=== PATIENT | female | born 1940 | race Caucasian/White ===

== ENCOUNTER 2021-04-20 05:10 | Observation (INO) ==
--- NOTE | 2021-02-17 15:35 | PAT Medication Instructions ---
Medication Instructions Date of Service February 17, 2021 Home Medications alendronate 70 mg tablet (Fosamax) 70 mg PO WK apixaban 5 mg tablet (Eliquis) 5 mg PO BID atorvastatin 20 mg tablet (Lipitor) 20 mg PO PM brimonidine 0.15 % eye drops (Alphagan P) 1 drp OPHTHALMIC (EYE) BID cholecalciferol (vitamin D3) 50 mcg (2,000 unit) capsule (Vitamin D3) 50 mcg PO QAM diltiazem HCl 180 mg capsule,24 hr,extended release 180 mg PO QAM dorzolamide 22.3 mg-timolol 6.8 mg/mL eye drops (Cosopt) 1 drp OPHTHALMIC (EYE) AMPM furosemide 20 mg tablet (Lasix) 20 mg PO DAILY PRN lisinopril 10 mg tablet 10 mg PO QAM meloxicam 7.5 mg tablet (Mobic) 7.5 mg PO QAM metoprolol succinate 50 mg tablet,extended release 24 hr (Toprol XL) 100 mg PO BID montelukast 10 mg tablet (Singulair) 10 mg PO HS sertraline 25 mg tablet (Zoloft) 25 mg PO QAM spironolactone 25 mg tablet 12.5 mg PO DAILY PRN loratadine 10 mg tablet 10 mg PO DAILY PRN PreserVision AREDS-2 1 tab PO BID Continue as directed alendronate 70 mg tablet (Fosamax) 70 mg PO WK ASK your prescriber and surgeon apixaban 5 mg tablet (Eliquis) 5 mg PO BID (in order for spinal anesthesia, Apixaban/Eliquis needs to be stopped 72 hours/3 days before surgery. Please check if okay with doctor that prescribes this to you) STOP taking 2 weeks before surgery (or as soon as possible if surgery is within 2 weeks) PreserVision AREDS-2 1 tab PO BID DO NOT take the morning of surgery cholecalciferol (vitamin D3) 50 mcg (2,000 unit) capsule (Vitamin D3) 50 mcg PO QAM furosemide 20 mg tablet (Lasix) 20 mg PO DAILY PRN lisinopril 10 mg tablet 10 mg PO QAM spironolactone 25 mg tablet 12.5 mg PO DAILY PRN loratadine 10 mg tablet 10 mg PO DAILY PRN Take morning of surgery With a small sip of water, OTHERWISE NOTHING TO EAT OR DRINK AFTER MIDNIGHT: brimonidine 0.15 % eye drops (Alphagan P) 1 drp OPHTHALMIC (EYE) BID diltiazem HCl 180 mg capsule,24 hr,extended release 180 mg PO QAM dorzolamide 22.3 mg-timolol 6.8 mg/mL eye drops (Cosopt) 1 drp OPHTHALMIC (EYE) AMPM metoprolol succinate 50 mg tablet,extended release 24 hr (Toprol XL) 100 mg PO BID sertraline 25 mg tablet (Zoloft) 25 mg PO QAM Take evening before surgery atorvastatin 20 mg tablet (Lipitor) 20 mg PO PM brimonidine 0.15 % eye drops (Alphagan P) 1 drp OPHTHALMIC (EYE) BID dorzolamide 22.3 mg-timolol 6.8 mg/mL eye drops (Cosopt) 1 drp OPHTHALMIC (EYE) AMPM furosemide 20 mg tablet (Lasix) 20 mg PO DAILY PRN (if needed) metoprolol succinate 50 mg tablet,extended release 24 hr (Toprol XL) 100 mg PO BID montelukast 10 mg tablet (Singulair) 10 mg PO HS spironolactone 25 mg tablet 12.5 mg PO DAILY PRN (if needed) loratadine 10 mg tablet 10 mg PO DAILY PRN (if needed) Other Notes If you have any questions please call us at [phone] or [phone] or [phone] or [phone]
--- NOTE | 2021-02-22 11:08 | Anesthesiology Consultation ---
Date of Service February 22, 2021 Assessment & Plan (1) Encounter for pre-operative examination: - COVID screening: Per assessment on 02/22: Travel screen negative, no known COVID-19 positive contacts or current COVID-19 related symptoms. Patient vac cinated. Surgeon arranging preop COVID testing. Awaiting results. - Cardiology office visit (02/15/21): "Paroxysmal atrial fibrillation status post pulmonary vein isolation ablation for past atrial flutter and atrial fibrillation, February 2004 with a repeat study in 2004. Recurrent arrhythmia with subsequent synchronized electrical cardioversion May 06, 2020.. Patient found to have recurrent rate controlled afib today. She is relatively asymptomatic and was not initially aware of the recurrent arrhythmia. Her rates are appropriately controlled on current dose of diltiazem. Otherwise she reports stable functional capacity, other than right knee pain. Considered low to moderate risk for perioperative cardiac complications. Acceptable to hold Eliquis for 2 days (4 doses) pre surgery. To be resumed in the post op setting when bleeding risk is minimal. One month after resumption and interruption of Eliquis, could consider repeat CV with possible sotalol initiation vs ongoing rate control strategy. Would not delay surgery due to recurrent rate controlled afib." - Eliquis instructions: patient made aware that in order for spinal anesthesia, Eliquis needs to be held 72 hours/3 days prior to surgery. Patient states that her notch machine operator had told her to stop Eliquis 48 hours prior to surgery previous to PAT visit and will follow-up with them again to see if they give approval for holding 72 hours prior to surgery. Patient aware that if cardiology does not feel able to hold for 72 hours, that general anesthesia is the alternative anesthetic option. Chart Review Chart Review: Acceptable Risk for Surgery and Patient seen in Pre Admission Testing Teaching & Discussion Pre-Anesthesia Teaching/Discussion Notes: Instructed NPO after midnight before surgery,except medications with 15 cc of water. Medication instructions provided according to the PAT guidelines. History Surgery Operation Date: 03/09/21 07:00 Proposed Procedures p Right Total Knee Replacement - Adeel Peter MD Height/Weight Height: 5 ft 3 in Weight: 87.2 kg Allergies Allergy/AdvReac Type Severity Reaction Status Date / Time Penicillins Allergy Mild Rash (? Verified 02/19/21 15:52 negative allergy testing) Sulfa (Sulfonamide Allergy Mild Rash Verified 02/17/21 10:19 Antibiotics) codeine AdvReac Intermediate Nausea Verified 02/17/21 10:20 Medications Home Medications Medication Instructions Recorded Confirmed Last Taken alendronate 70 mg tablet (Fosamax) 70 mg PO WK 05/05/20 02/17/21 Unknown apixaban 5 mg tablet (Eliquis) 5 mg PO BID 05/05/20 02/17/21 Unknown atorvastatin 20 mg tablet (Lipitor) 20 mg PO PM 05/05/20 02/17/21 Unknown brimonidine 0.15 % eye drops 1 drp OPHTHALMIC (EYE) BID 05/05/20 02/17/21 Unknown (Alphagan P) cholecalciferol (vitamin D3) 50 50 mcg PO QAM 05/05/20 02/17/21 Unknown mcg (2,000 unit) capsule (Vitamin D3) diltiazem HCl 180 mg capsule,24 180 mg PO QAM 05/05/20 02/17/21 Unknown hr,extended release dorzolamide 22.3 mg-timolol 6.8 1 drp OPHTHALMIC (EYE) AMPM 05/05/20 02/17/21 Unknown mg/mL eye drops (Cosopt) furosemide 20 mg tablet (Lasix) 20 mg PO DAILY PRN 05/05/20 02/17/21 Unknown lisinopril 10 mg tablet 10 mg PO QAM 05/05/20 02/17/21 Unknown meloxicam 7.5 mg tablet (Mobic) 7.5 mg PO QAM 05/05/20 02/17/21 Unknown metoprolol succinate 50 mg 100 mg PO BID 05/05/20 02/17/21 Unknown tablet,extended release 24 hr (Toprol XL) montelukast 10 mg tablet 10 mg PO HS 05/05/20 02/17/21 Unknown (Singulair) sertraline 25 mg tablet (Zoloft) 25 mg PO QAM 05/05/20 02/17/21 Unknown spironolactone 25 mg tablet 12.5 mg PO DAILY PRN 05/05/20 02/17/21 Unknown loratadine 10 mg tablet 10 mg PO DAILY PRN 02/17/21 02/17/21 Unknown vit C 250 mg-vit E 90 mg-zinc 40 1 tab PO BID 02/17/21 02/17/21 Unknown mg-copper 1 [id number] capsule (PreserVision AREDS-2) Past Medical History Medical History Asthma Well controlled. No inhaler x 1+ years Atrial fibrillation Dx several yrs ago, cardioversion 05/[address] Negrete Cervical arthritis DJD (degenerative joint disease) Elevated cholesterol Glaucoma Hypertension Macular degeneration Obesity Osteoporosis Parathyroid disease Hyperparathyroidism Exercise / Class Metabolic Activity III < 4 Walking/Shop/Light housework Past Surgical History Surgical History H/O cervical discectomy ROM WNL per pt History of cardiac radiofrequency ablation 2004, 2005 History of cardioversion Cardioversion (05/06/20): MAC at [facility] History of cataract surgery R/L History of tonsillectomy Hx of colonoscopy Status post Mohs surgery x2 face Past Anesthesia History No Hx of Anesthesia Complications (except remote PONV) and No Family Hx of Anesthesia Complications History of PONV History of PONV (remote PONV) and Hx of Motion Sickness Social History Smoking Status: Never smoker Do You Dip or Chew Tobacco: No Hx Alcohol Use: Yes Alcohol type: wine alcohol intake frequency: 0-2 drinks per day Hx Substance Use: No substance use type: does not use Review of Systems Patient denies chest pain, shortness of breath, fever, chills, cough, wheezing, palpitations. Physical Exam Vital Signs VITALS BP 143/81 P 88 TEMP 98.5 SP02 96%RA RESP 16 PHYSICAL Full cervical extension range of motion. Full TMJ range of motion. TMD 3.5 finger breaths Mallampati Score 3 (large torus on roof of mouth, smaller noted under tongue) Dentition: intact, + crowns Lungs: clear throughout to auscultation Cardiac: regular rate, irregular rhythm, no murmurs noted Spine: normal Carotid arteries: negative bruit Extremities: no edema Short neck Lab Results Anesthesia Preop Results Results Anesthesia Widget: WBC 8.06 K/uL (4.8-10.8) 02/22/21 Hgb 13.5 g/dL (12.0-16.0) 02/22/21 Hct 40.9 % (37-47) 02/22/21 Plt 247 K/uL (130-400) 02/22/21 Na 135 mmol/L (136-145) L 02/22/21 K 4.2 mmol/L (3.5-5.1) 02/22/21 Cl 102 mmol/L (98-107) 02/22/21 CO2 26 mmol/L (21-32) 02/22/21 BUN 9 mg/dl (7-18) 02/22/21 Creat 0.69 mg/dl (0.6-1.2) 02/22/21 Glucose Level 95 mg/dl (70-99) 02/22/21 PT 11.4 Seconds (9.0-12.0) 02/22/21 PTT 28.2 Seconds (21.0-31.0) 02/22/21 INR 1.1 (0.9-1.1) 02/22/21 Blood Type AB Positive 02/22/21 Antibody Screen NEGATIVE 02/22/21 Testing Electrocardiogram Date: 02/15/21 Findings: + AFIB @ (89) Chest X-Ray Date: 02/22/21 FINDINGS: Cardiomediastinal and hilar silhouettes are within normal limits. Calcified plaque of the thoracic aorta. Mild hyperinflation. No pneumothorax, large pleural effusion or lobar airspace consolidation. Blunting of the costophrenic angles with mild bibasilar densities suggestive of atelectasis/scarring. Degenerative changes of the shoulders and spine. Cervical spinal fusion hardware. IMPRESSION: No acute process. Echocardiogram Date: 12/15/15 EF 55-59%. Mild LAE. Grade I DD. Mild MR/TR. No RWMA.
--- NOTE | 2021-04-16 14:13 | History and Physical Report ---
DATE OF ADMISSION: 04/20/2021 CHIEF COMPLAINT: Right knee pain and discomfort. HISTORY OF PRESENT ILLNESS: The patient is an 80-year-old female who presents now for surgical treat ment of her right knee. She has had a long, several-year history of gradually increasing right knee pain and discomfort. We have been treating her over the years with injections. The shots have becom e less successful over time. It has really limited her walking ability. She enjoys walking and hiki ng and is unable to do that. She describes global pain. It increases with weightbearing. She limps more as the day goes on. The shots only helped her for a short period of time. She would like to h ave her knee fixed. She has been scheduled for several attempts at this, but canceled due to the martinez demic. She would now like to proceed. PAST MEDICAL HISTORY: Significant for, 1. Asthma. 2. Atrial fibrillation, status post cardioversion, but still back in AFib, rate controlled. 3. Elevated cholesterol. 4. Hypertension. 5. Parathyroid disease. 6. Cervical degenerative arthritis. PAST SURGICAL HISTORY: Includes, 1. Neck surgery for diskectomy. 2. Colonoscopy. 3. Pulmonary vein ablation. ALLERGIES: PENICILLIN, WHICH CAUSES A RASH. NO BREATHING PROBLEMS. ALSO DESCRIBES ALLERGIES TO SUL FA. CURRENT MEDICATIONS: Include, 1. Fosamax. 2. Eliquis for AFib. 3. Aspirin. 4. Lipitor. 5. Vitamin D3. 6. Diltiazem. 7. Cosopt. 8. Lasix. 9. Lisinopril. 10. Mobic. 11. Metoprolol-XL. 12. Zoloft. 13. Spironolactone. SOCIAL HISTORY: An 80-year-old female. She is a . Lives alone. Does not smoke. She lives at [facility]. FAMILY HISTORY: Noncontributory. REVIEW OF SYSTEMS: Significant for atrial fibrillation. She is on Eliquis. She did have an ablatio n, but she has gone back in AFib, but rate controlled. No chest pain or shortness of breath. No his tory of DVT or PE. PHYSICAL EXAMINATION: GENERAL: Shows a pleasant, elderly female. Looks to be in pretty good health. HEENT: Benign. NECK: Supple. No lymphadenopathy. LUNGS: Clear to auscultation. HEART: Has an irregularly irregular rhythm. ABDOMEN: Soft, nontender, nondistended. EXTREMITIES: Grossly neurovascularly intact except as follows: Examination of the right knee reveal s the patient walks with just a slight bit of a limp. She has got valgus alignment to her knee, whic h is increased with weightbearing. She has got a small to moderate-sized knee effusion. Range of mo tion about 10 degrees short of full extension to about 115 degrees of flexion. No pain with hip autumn on. Negative straight leg raise. X-RAYS: X-rays of the right knee from previously are reviewed. It shows advanced right knee latera l DJD. She has complete loss of her lateral joint space. Diffuse osteopenia. ASSESSMENT: An 80-year-old female with multiple medical comorbidities including atrial fibrillation, elevated cholesterol, hypertension, parathyroid disease, asthma and underlying arthritis [facility] right knee degenerative joint disease. She has failed conservative treatment. She would like to have her right knee replaced. She has actually been scheduled on several occasions, but canceled due to the pandemic. She is really anxious to get this fixed. PLAN: We will take her to the operating room and do right total knee replacement. The risks and ankit efits of this procedure were explained to the patient and include, but not limited to DVT, PE, , infection, neurological injury, vascular injury, bleeding problem, pain, limited range of motion, st iffness, failure to relieve her symptoms, incomplete relief of symptoms, need for further surgery in the future, fracture, leg length inequality, nerve palsy, etc. The patient understands and desires t o proceed. Informed consent was obtained. She does have AFib and she will need to stop her Eliquis 3 days preop. We will start her back on a p rophylactic dose 24 hours postop and then a therapeutic dose on discharge. She has seen Dr. Caden palmer is cleared for surgery. She will hold the lisinopril on the morning of surgery and take the metopr olol. As far as discharge plans, she is going to plan on going to [facility] for recovery. Job ID: [id number]
[~2021-04-20 05:10] MED LIST: ACETAMINOPHEN 500 MG TAB PO SCH; BUPIVACAINE LIPOSOME/PF 266 MG, BUPIVACAINE/EPINEPHRINE 50 ML, SODIUM CHLORIDE 0.9% 30 ... INFIL SCH; FAMOTIDINE 20 MG TAB PO SCH; GABAPENTIN 300 MG CAP PO SCH; LR 500ML BOLUS, THEN 15ML/HR IV SCH; LR 60ML/HR IV SCH; METOCLOPRAMIDE HCL 10 MG TABLET PO SCH; TRANEXAMIC ACID 1,000 MG **IV Intra-op IV SCH; ceFAZolin 2000MG 2,000 MG/15 ML SYR IV SCH
[2021-04-20] MEDS ORDERED: LR 500ML BOLUS, THEN 15ML/HR IV SCH (06:00)
[2021-04-20] MEDS ORDERED: TRANEXAMIC ACID 1,000 MG **IV Intra-op IV SCH (06:00)
[2021-04-20] MEDS ORDERED: METOCLOPRAMIDE HCL 10 MG TABLET PO SCH (06:00)
[2021-04-20] MEDS ORDERED: ACETAMINOPHEN 500 MG TAB PO SCH (06:00)
[2021-04-20] MEDS ORDERED: FAMOTIDINE 20 MG TAB PO SCH (06:00)
[2021-04-20] MEDS ORDERED: LR 60ML/HR IV SCH (06:00)
[2021-04-20] MEDS ORDERED: GABAPENTIN 300 MG CAP PO SCH (06:00)
[2021-04-20] MEDS ORDERED: ceFAZolin 2000MG 2,000 MG/15 ML SYR IV SCH (06:00)
[2021-04-20] MEDS ORDERED: BUPIVACAINE LIPOSOME/PF 266 MG, BUPIVACAINE/EPINEPHRINE 50 ML, SODIUM CHLORIDE 0.9% 30 ... INFIL SCH (06:00)
[2021-04-20] MEDS ORDERED: BUPIVACAINE 0.5 % 5 MG/1 ML PF 10ML VIAL ONE (06:19)
[2021-04-20] MEDS ORDERED: LIDOCAINE 2% 2 ML VIAL/AMP(20MG/ML) INFIL ONE (06:38)
[2021-04-20] MEDS ORDERED: MIDAZOLAM HCL 1 MG/ML 2ML VIAL ONE (06:38)
[2021-04-20] MEDS ORDERED: PROPOFOL IV EMULSION 10 MG/ML 20 ML VIAL IV ONE (06:38)
[2021-04-20] MEDS ORDERED: fentaNYL citrate 100 MCG/2 ML VIAL ONE (06:38)
[2021-04-20] MEDS ORDERED: fentaNYL citrate 100 MCG/2 ML VIAL IV PRN (06:40)
[2021-04-20] MEDS ORDERED: ePHEDrine sulfate 50 MG/ML AMP IV PRN (06:40)
[2021-04-20] MEDS ORDERED: ONDANSETRON INJ 2 MG/ML 2 ML VIAL IV PRN ×2 (06:40→10:02)
[2021-04-20] MEDS ORDERED: ATROPINE SULFATE 0.1 MG/ML 10ML SYR IV PRN (06:40)
[2021-04-20] MEDS ORDERED: SODIUM CHLORIDE 0.9% PF 50 ML VIAL ONE (06:56)
[2021-04-20] MEDS ORDERED: BUPIVACAINE 0.25% 30 ML VIAL ONE (06:57)
[2021-04-20] MEDS ORDERED: EPINEPHrine INJ 1 MG/ML AMP ONE (06:57)
[2021-04-20] MEDS ORDERED: BUPIVACAINE LIPOSOME 1.3% 266 MG/20 ML VIAL ONE (06:57)
--- NOTE | 2021-04-20 07:02 | History & Physical Bridge Note ---
Date of Service April 20, 2021 History & Physical Bridge Note I have examined the patient, reviewed the History & Physical and in the interval since the performance of the History & Physical I have noted the following changes of clinical significance: no changes noted
[2021-04-20] MEDS ORDERED: PHENYLEPHRINE 100MCG/ML 5ML SYR ONE (08:37)
--- NOTE | 2021-04-20 09:11 | Operative Report ---
Post Operative Report Pre & Post Diagnosis Operation Date: 04/20/21 07:00 Pre-Op Diagnosis: Right Knee Advanced Degenerative Joint Disease Post-Op Diagnosis: Right Knee Advanced Degenerative Joint Disease I identified the patient and participated in the time-out.: Yes Procedure Operation Date: 04/20/21 07:00 Actual Procedures p Right Total Knee Arthroplasty(Right) - Adeel Peter MD Surgeon Adeel Peter MD Tire Fabricator Saqib Mtz PA-C Estimated Blood Loss 50 Findings Consistent with Post-Op Diagnosis Operative findings were advanced right knee tricompartment DJD. She had grade 4 [id number] disease in all 3 compartments most severe in the lateral side. She has fixed valgus deformity and a slight flexion contracture. She had fairly stiff knee preoperatively only had bend about 100 degrees. Fluids 1000 cc Specimens Right knee sent for pathology. Drains None Anesthesia Type Spinal MAC Complications none Disposition Accompanied Patient To Recovery: No Indications Patient is an 80-year-old female long-term patient of mine has had a long several year history of gradually increasing right knee pain discomfort and progressive arthritic changes. She failed conservative measures. She has actually been scheduled for knee replacement surgery several times but canceled due to the Covid epidemic. She now presents for surgical management. Description of Procedure Operative implants consist of: 1. Biomet Vanguard size 65 right posterior stabilized femoral component. 2. Biomet size 71 tibial tray. 3. 10 mm posterior stabilized polyethylene insert. 4. 28 x 8 all polypatella. The patient was taken the operating, identified, placed on the operating table supine position but all contact areas were properly padded. IV antibiotics were tried by the anesthesia team. A spinal anesthetic had been implemented holding area. Feliz catheter was placed in sterile fashion. Right thigh turn was then placed. Right lower extremities then prepped and draped in usual sterile fashion. Right leg was elevated exsanguinated with use of an Esmarch and turns placed at 3 mmHg. An anterior approach to the right knee was then performed through longitudinal incision centered over the patella. Sharp dissection carried through subcutaneous is down the extensor mechanism. Medial parapatellar arthrotomy incision was made. Some subperiosteal dissection was carried out medially. The fat pad was resected beneath patella tendon. Lateral patellof emoral ligament was released. Patella subluxated laterally and the knee was flexed. The osteophytes were taken off distal femur. The ACL and PCL were then released from distal femur the tibia subluxated anteriorly. The external tibial alignment jig was then placed in the interface of the tibia and adjusted 12 mm medially. Proximal tibial cut was made remove about 4 to 5 mm of bone from the medial side. Her bone was fairly osteopenic. We then sized the tibia to a size 71. I tried to maximize coverage due to her osteopenia. Attention drawn the femur. The distal femur during the sharp drop with intramedullary canal was suction. A right 5 degree valgus cutting guide was placed. The distal femoral cutting block was pinned in place. Distal femoral cut was made to take an additional 3 mm of bone off distal femur. I then brought the knee out in extension. I did release the IT band in order to equalize extension gap. The femur was then sized to a size 65. We did downsize this almost an entire size. The AP cutting block was pinned parallel to the epicondylar axis which was 3 degrees external rotation. The anterior cut, anterior chamfer, posterior cut, posterior chamfer cuts were made. The box cutting guide was placed in just slight lateral box cut was made. The knee was flexed for the remnants of the medial and lateral menisci were excised. I did release the popliteus in order to equalize the flexion gap. Great care was taken throughout the procedure protect the peroneal nerve at all times. The osteophyte taken off the posterior aspect the femur. A trial femoral component was placed. Tibial tray was pinned in maximum external rotation and the drill and stem punch were used to create the defect in the proximal tibia for the tibial tray. Knee was then trialed and the 10 mm insert fit most appropriately. Attention drawn the patella. Patella cut was cleaned of all soft tissues. Patella thickness measured 22 mm in thickness was cut down to 14. I excised this to a size 28 patella. The lug holes were drilled for the 28 patella. The lateral osteophyte is moved. Patella button was placed. Knee was taken through range of motion patella tracked nicely with no thumbs test. Attention then drawn toward placing permanent components. All trial components were removed. A bone plug was placed in the distal femur limit blood loss. Double batch Palacos G cement was mixed. A Biomet Vanguard size 65 right posterior stabilized femoral component, size 71 tibial tray, a 10 mm posterior stabilized polyethylene insert, and a 28 x 8 all polypatella then cemented in place. Knee was brought out into full extension until cement hardened. Final cement check was then performed. The pericapsular tissues were injected with total 100 cc of combination of 20 cc of Exparel, 30 cc normal saline, 50 cc of quarter percent Marcaine with epinephrine. Patient did receive 1 g tranexamic acid per the turn was let down for final treatment time of 54 minutes. Hemostasis assured use electrocautery. Extensor mechanism closed with combination 1 PDS suture #1 Vicryl suture in [id number] fashion. Extensor mechanism checked found to be intact with subcutaneous tissue then closed with 2 Dexon suture in a buried interrupted fashion. Skin was closed skin netta. Leg was then cleaned and dried a sterile dressing was Xeroform, 4 x 4's, sterile cast padding, Merlin bandage were applied. Patient then transferred to the recovery room in stable condition. Patient tolerated procedure well and there were no complications. Saqbi Mtz, my physician speech therapy assistant, was present for the entire procedure. His assistance was essential and required for appropriate patient positioning, prepping and draping, surgical exposure, performing the technical details of the operation, placement the implants, closure of the wound, and placement of the sterile bandage. I attest to the content of the Intraoperative Record and any orders documented therein. Any exceptions are noted below.
--- NOTE | 2021-04-20 09:38 | XRay Report ---
XR knee RT 1 or 2V routine HISTORY: 80 years-old Female Surgical Post Op right knee total joint arthroplasty COMPARISON: Right knee radiographs 10/16/2020 TECHNIQUE: 2 views of the right knee FINDINGS: Right knee total joint arthroplasty and patella resurfacing. Anterior midline skin netta are noted along with expected postoperative soft tissue swelling and deep tissue air. No acute fracture, malali gnment or opaque foreign body identified. IMPRESSION: Right knee total joint arthroplasty with expected postoperative changes. ACT 112: Negative or not required by law. The above report was generated using voice recognition software. It may contain grammatical, syntax o r spelling errors. Electronically signed by: Romero Judge M.D. 04/20/2021 9:37 AM
[2021-04-20] MEDS ORDERED: METOCLOPRAMIDE HCL INJ 5 MG/ML 2 ML VIAL IV PRN (10:02)
[2021-04-20] MEDS ORDERED: NON-FORMULARY MEDICATION (Vit C,E-Zn-Coppr-Lutein-Zeaxan [Preservision Areds-2] 250-90-40- PO SCH (10:02)
[2021-04-20] MEDS ORDERED: MAGNESIUM HYDROXIDE SUSP 30 ML UDC PO PRN (10:02)
[2021-04-20] MEDS ORDERED: FUROSEMIDE 20 MG TAB PO PRN (10:02)
[2021-04-20] MEDS ORDERED: SPIRONOLACTONE 12.5 MG TAB PO PRN (10:02)
[2021-04-20] MEDS ORDERED: LORATADINE 10 MG TAB PO PRN (10:02)
[2021-04-20] MEDS ORDERED: HYDROmorphone INJ 0.5 MG/0.5 ML SYR IV PRN (10:02)
[2021-04-20] MEDS ORDERED: bisacodyL 10 MG SUPP PR PRN (10:02)
[2021-04-20] MEDS ORDERED: ALUMINUM/MAGNESIUM SUSP 30 ML UDC PO PRN (10:02)
[2021-04-20] MEDS ORDERED: NALOXONE HCL 0.4 MG/1 ML VIAL/CARP IV PRN (10:02)
[2021-04-20] MEDS ORDERED: DOCUSATE SODIUM/SENNA 50/8.6MG TAB PO SCH (10:02)
--- NOTE | 2021-04-20 10:28 | Anesthesiology Progress Note ---
Date of Service April 20, 2021 Anesthesia Post Procedure Vital Signs Vital Signs: Temp Pulse Pulse Resp BP BP Pulse Ox 04/20/21 09:20 97.3 F L 75 16 101/67 97 04/20/21 09:10 72 16 103/51 L 96 04/20/21 09:00 97.2 F L 65 16 100/62 97 04/20/21 05:35 99.0 F 97 H 20 161/81 H 97 Transfer of Care Handoff Completed per policy Notes Mental Status: alert / awake / arousable and participated in evaluation Patient Amnestic to Procedure: Yes Nausea / Vomiting: adequately controlled Pain: adequately controlled Airway Patency, RR, SpO2: stable & adequate BP & HR: stable & adequate Hydration State: stable & adequate Neuraxial Anesthesia: was administered and sensory block is resolving Anesthetic Complications: no major complications apparent and Pt Satisfied with anesthetic care
[2021-04-20] MEDS: dilTIAZem ER 180 MG CAPCR PO SCH (11:38)
[2021-04-20] MEDS: BRIMONIDINE TARTRATE-P 0.15% 5 ML BTL OP SCH ×2 (11:38→19:20)
[2021-04-20] MEDS: CHOLECALCIFEROL 1,000 UNITS 25 MCG TAB PO SCH (11:38)
[2021-04-20] MEDS: DORZOLAMIDE/TIMOLOL 22.3/6.8MG/ML 10 ML BTL OP SCH ×2 (11:38→19:27)
[2021-04-20] MEDS: METOPROLOL SUCC 50MG EXT REL TAB PO SCH ×2 (11:39→19:18)
[2021-04-20] MEDS: SERTRALINE HCL 50 MG TABLET PO SCH (11:39)
[2021-04-20] MEDS: DOCUSATE SODIUM 100 MG CAP PO SCH ×2 (11:42→19:17)
[2021-04-20] MEDS: lisinopril 10 MG TAB PO SCH (11:43)
[2021-04-20] MEDS: KETOROLAC TROMETHAMINE 15 MG/ML VIAL IV SCH ×3 (11:44→23:13)
[2021-04-20] MEDS: SODIUM CHLORIDE 0.9% 1000ML 1,000 ML IV SCH ×2 (11:44→22:11)
[2021-04-20] MEDS: MULTIVITAMIN TAB PO SCH (11:51)
--- NOTE | 2021-04-20 12:51 | Progress Notes ---
DATE OF SERVICE: 04/20/2021 SUBJECTIVE: An 80-year-old female postop from a right knee replacement. She is doing well. Just st arting to get some pain back in her leg. No chest pain or shortness of breath. Not feeling dizzy or lightheaded. OBJECTIVE: VITAL SIGNS: Temperature 36.3. Vital signs are stable. PHYSICAL EXAMINATION: GENERAL: Shows a pleasant, elderly female. She is sitting up in bed and looks quite comfortable. LUNGS: Clear to auscultation. HEART: Has an irregularly irregular rhythm. ABDOMEN: Soft, nontender, nondistended. EXTREMITIES: Grossly neurovascularly intact except as follows: Examination of the right leg reveals the leg to be well aligned. Dressing is clean, dry and intact. She can dorsiflex and plantarflex h er foot appropriately. A little bit weak, but all motor groups seem to be working. Brisk refill. G ood distal pulse. X-RAYS: X-rays of the right knee from recovery room are reviewed. It shows right cemented posterior stabilized total knee arthroplasty. Components looked to be in good position. No signs of problems . ASSESSMENT: An 80-year-old female postoperative from a right knee replacement, doing well. She does have a history of chronic atrial fibrillation and is on anticoagulation. Her pain is controlled. H er nerve function is returning. PLAN: 1. DVT prophylaxis includes thigh-high TEDs, SCDs. We will start her back on her Eliquis 24 hours p ostoperatively at prophylactic dose and then full dose on discharge. 2. PT/OT. She can weight bear as tolerated. Right total knee protocol. 3. Pain control, doing okay with current pain regimen. 4. IV antibiotics x24 hours. 5. Disposition: Plan to discharge to [facility] once adequately recovered and medically stable. We will have medical social worker work on these arrangements. Job ID: [id number]
[2021-04-20] MEDS: ACETAMINOPHEN 500 MG TAB PO SCH ×2 (14:55→22:19)
[2021-04-20] MEDS: ceFAZolin 2000MG 2,000 MG/15 ML SYR IV SCH ×2 (14:55→22:21)
[2021-04-20] MEDS ORDERED: TRANEXAMIC ACID / 0.7% NACL 1,000 MG/100 ML BAG IV SCH (15:00)
[2021-04-20] MEDS: ASCORBIC ACID 500 MG TAB PO SCH (19:16)
[2021-04-20] MEDS: ATORVASTATIN 20 MG TAB PO SCH (19:17)
[2021-04-20] MEDS: MONTELUKAST SODIUM 10 MG TABLET PO SCH (19:19)
[2021-04-20] MEDS: SENNA 8.6 MG TAB PO SCH (19:20)
[2021-04-20] MEDS: traMADol HCL 50 MG TABLET PO PRN (22:20)
[2021-04-21] MEDS: traMADol HCL 50 MG TABLET PO PRN ×4 (03:23→19:09)
[2021-04-21] MEDS: KETOROLAC TROMETHAMINE 15 MG/ML VIAL IV SCH (05:08)
[2021-04-21] MEDS: ACETAMINOPHEN 500 MG TAB PO SCH ×3 (05:08→22:09)
[2021-04-21 07:43] LABS: Hematocrit (blood only) 35.9 % (37-47); Hemoglobin 11.9 g/dL (12.0-16.0); Mean Corpuscular Hemoglobin 29.7 pg (25-34); Mean Corpuscular Hgb Conc 33.1 g/dL (32-36); Mean Corpuscular Volume 89.5 fL (80-100); Mean Platelet Volume 9.8 fL (7.4-10.4); Platelet Count 243 K/uL (130-400); RDW Coefficient of Variation 14.3 % (11.5-14.5); RDW Standard Deviation 46.9 fL (36.4-46.3); Red Blood Count 4.01 M/uL (4.2-5.4); White Blood Count 9.98 K/uL (4.8-10.8)
[2021-04-21] MEDS ORDERED: dexAMETHasone 4 MG TAB PO SCH (08:00)
[2021-04-21 08:15] LABS: BUN Creatinine Ratio 12.8 (10-20); Creatinine Clr Calc Pharmacy 78.1 ml/min; Est GFR (African American) 100.1 ml/min; Est GFR (Non-African American) 86.3 ml/min
[2021-04-21] MEDS: DORZOLAMIDE/TIMOLOL 22.3/6.8MG/ML 10 ML BTL OP SCH ×2 (09:25→19:06)
[2021-04-21] MEDS: CHOLECALCIFEROL 1,000 UNITS 25 MCG TAB PO SCH (09:26)
[2021-04-21] MEDS: DOCUSATE SODIUM 100 MG CAP PO SCH ×2 (09:26→19:12)
[2021-04-21] MEDS: METOPROLOL SUCC 50MG EXT REL TAB PO SCH ×2 (09:27→19:11)
[2021-04-21] MEDS: APIXABAN 2.5 MG TAB PO SCH ×2 (09:27→19:09)
[2021-04-21] MEDS: ASCORBIC ACID 500 MG TAB PO SCH ×2 (09:27→19:07)
[2021-04-21] MEDS: dilTIAZem ER 180 MG CAPCR PO SCH (09:28)
[2021-04-21] MEDS: SERTRALINE HCL 50 MG TABLET PO SCH (09:28)
[2021-04-21] MEDS: lisinopril 10 MG TAB PO SCH (09:28)
[2021-04-21] MEDS: MULTIVITAMIN TAB PO SCH (09:30)
[2021-04-21] MEDS: BRIMONIDINE TARTRATE-P 0.15% 5 ML BTL OP SCH ×2 (09:32→20:00)
[2021-04-21] MEDS ORDERED: MELATONIN 3 MG TAB PO PRN (17:35)
--- NOTE | 2021-04-21 18:26 | Progress Notes ---
DATE OF SERVICE: 04/21/2021 SUBJECTIVE: An 80-year-old frail female postoperative day 1 from right knee replacement. She is doi ng okay. She says she did not take pain medicine last night and kind of got behind. She is doing we ll now. Denies any chest pain or shortness of breath. She is concerned about her heart rate. She d oes feel wiped out. OBJECTIVE: VITAL SIGNS: Temperature 36.7. Vital signs are stable. PHYSICAL EXAMINATION: GENERAL: Shows a pleasant, elderly female. Lying in bed, looks pretty comfortable currently. EXTREMITIES: Examination of the right leg reveals the leg to be well aligned. Dressing is clean, dr y and intact. She can dorsiflex and plantarflex her foot appropriately. She is neurologically intac t. LABORATORY DATA: Hemoglobin 11.9. Hematocrit 35.9. Electrolytes are stable. ASSESSMENT: An 80-year-old female with chronic atrial fibrillation, postoperative day 1 from right k nee replacement, doing pretty well. Her pain is controlled. Heart rate has been pretty well control led despite her concerns. She feels pretty wiped out and does not feel like she can go to a fpc facility today. PLAN: 1. DVT prophylaxis includes thigh-high TEDs, SCDs, and she is back on her anticoagulation/Eliquis. 2. PT/OT. She can weight bear as tolerated. Right total hip protocol. 3. Pain control, doing okay with current pain regimen. 4. Disposition. We are going to keep her in the hospital overnight, make sure her heart rate is con trolled and do some therapy tomorrow and likely discharge to [facility]. Job ID: [id number]
[2021-04-21] MEDS: SENNA 8.6 MG TAB PO SCH (19:08)
[2021-04-21] MEDS: ATORVASTATIN 20 MG TAB PO SCH (19:10)
[2021-04-21] MEDS: MONTELUKAST SODIUM 10 MG TABLET PO SCH (19:12)
[2021-04-22] MEDS: traMADol HCL 50 MG TABLET PO PRN ×2 (03:44→11:47)
[2021-04-22] MEDS: ACETAMINOPHEN 500 MG TAB PO SCH (05:57)
--- NOTE | 2021-04-22 08:14 | Progress Notes ---
DATE OF SERVICE: 04/22/2021 SUBJECTIVE: An 80-year-old female postop day 2 from right knee replacement. She is doing pretty wel l this morning. Feels quite a bit more rested. Pain is controlled. No new complaints. OBJECTIVE: VITAL SIGNS: Temperature 36.7. Vital signs are stable. PHYSICAL EXAMINATION: GENERAL: Shows a pleasant, frail, elderly female. I had to wake her this morning. She looks quite comfortable. EXTREMITIES: Examination of the right leg reveals the leg to be well aligned. A little bit of blood y drainage at the inferior aspect of her incision site. Calf is soft and supple. She is neurologica lly intact. ASSESSMENT: An 80-year-old female postoperative day 2 from a right cemented total knee arthroplasty, doing pretty well. Pain is controlled. She is neurologically intact. PLAN: 1. DVT prophylaxis includes thigh-high TEDs, SCDs and back on her Eliquis. 2. PT/OT. She can weight bear as tolerated. 3. Pain control, doing pretty well with current pain regimen. 4. Disposition: Plan to discharge to [facility] for a rehab stay, then back to [facility] after frank t once adequately recovered. Job ID: [id number]
[2021-04-22] MEDS: DORZOLAMIDE/TIMOLOL 22.3/6.8MG/ML 10 ML BTL OP SCH (08:18)
[2021-04-22] MEDS: BRIMONIDINE TARTRATE-P 0.15% 5 ML BTL OP SCH (08:18)
[2021-04-22] MEDS: ASCORBIC ACID 500 MG TAB PO SCH (08:20)
[2021-04-22] MEDS: MULTIVITAMIN TAB PO SCH (08:20)
[2021-04-22] MEDS: SERTRALINE HCL 50 MG TABLET PO SCH (08:20)
[2021-04-22] MEDS: APIXABAN 2.5 MG TAB PO SCH (08:20)
[2021-04-22] MEDS: DOCUSATE SODIUM 100 MG CAP PO SCH (08:20)
[2021-04-22] MEDS: lisinopril 10 MG TAB PO SCH (08:21)
[2021-04-22] MEDS: dilTIAZem ER 180 MG CAPCR PO SCH (08:21)
[2021-04-22] MEDS: CHOLECALCIFEROL 1,000 UNITS 25 MCG TAB PO SCH (08:21)
[2021-04-22] MEDS: METOPROLOL SUCC 50MG EXT REL TAB PO SCH (08:27)
--- NOTE | 2021-04-27 15:03 | Discharge Summary ---
Date of Service April 27, 2021 Discharge Data Procedures Performed Operation Date: 04/20/21 07:00 Actual Procedures p Right Total Knee Arthroplasty(Right) - Adeel Peter MD Hospital Course (1) Status post total right knee replacement: This is a 81 year old patient admitted on 04/20/21 and underwent total knee arthroplasty. She tolerated the procedure well and there were no complications. Transferred to the PACU post op and later to the orthopedic floor for further care. She was given ancef for antibiotic prophylaxis. She was also given TONI stockings, SCDs, and eliquis for DVT prophylaxis. Hemoglobin, hematocrit, and vital signs were monitored during her hospital stay and remained stable. Did not require any blood transfusions. There were no complications during her hospital stay. By post op day #2 the patient was tolerating a regular diet, pain was reasonably controlled with oral pain medicine, and she was participating in physical therapy. On post op day #2 the patient was discharged to a residential facility. She was given printed discharge instructions. Continue physical therapy, weight bearing as tolerated. Continue TONI stockings. Follow up a pproximately 2 weeks post op or sooner if there are problems or concerns. Coding Level of Care Code None Diagnoses Status post total right knee replacement Z96.651
== END 2021-04-22 13:15 ==
LOC: 3W 05:10 → ASU 05:10
DX: I48.20 Chronic atrial fibrillation, unspecified; Z79.01 Long term (current) use of anticoagulants; Z88.5 Allergy status to narcotic agent; Z88.0 Allergy status to penicillin; Z79.899 Other long term (current) drug therapy; M17.11 Unilateral primary osteoarthritis, right knee; Z79.82 Long term (current) use of aspirin; J45.909 Unspecified asthma, uncomplicated; Z20.822 Contact with and (suspected) exposure to COVID-19